=== PATIENT | female | born 1960 | race Hispanic/Latino ===

== ENCOUNTER 2020-04-19 07:34 | Outpatient (CLI) | payer BC ==
--- NOTE | 2020-04-19 08:41 | MRI ---
MRI LEFT KNEE WITHOUT CONTRAST: Date: 04/19/2020 HISTORY: Pain. History of old meniscus tear. COMPARISON: None. FINDINGS: Medial Meniscus: High grade radial tear posterior horn medial meniscus involving the free edge, intermediate, and port ions of the red zone, 6 mm from the footprint. There is also an undersurface flap tear of the medial meniscal body. 3 mm medial gutter extrusion with some loss of hoop stress. Lateral Meniscus: Free edge fraying and minimal undersurface lateral meniscal body. ACL and PCL are intact, as well as the MCL and LCL. Extensor Mechanism: Quadriceps tendon, patella, and patella tendon are all intact. Cartilage: Patellofemoral compartment: Full thickness chondral fissure to the lateral trochlea with subcortical reactive marrow change. Medial compartment: Few full thickness chondral fissures of the anterior weightbearing surface media l tibial plateau with a few subcortical reaction marrow change cysts. Lateral compartment: Low grade chondral fraying. Muscles: Muscle signal and bulk is normal. IMPRESSION: 1. High grade radial tear posterior horn medial meniscus 6 mm from the footprint near the root invol ving the free edge, intermediate, and portions of red zone. 2. Undersurface flap tear medial meniscal body with gutter extrusion and some loss of hoop stress. 3. A few foci of full thickness chondral fissures of the lateral trochlea, as well as of the anterio r weightbearing surface medial tibial plateau. POS: [facility]
== END 2020-04-19 07:35 | disposition home or self-care (01) ==
LOC: TBSIIMAG 07:34
PROVIDERS: ATTEND Orthopaedic Surgery
DX: S83.242A Other tear of medial meniscus, current injury, left knee, initial encounter (principal)

== ENCOUNTER 2020-05-23 06:55 | Outpatient (CLI) | payer BC ==
[2020-05-24 03:02] LABS: SARS-CoV-2 MS2 Positive; SARS-CoV-2 N Gene Negative; SARS-CoV-2 S Gene Negative; SARS-CoV-2 by NAA Not Detected (NotDetected); SARS-CoV-2 orf1ab Negative
--- NOTE | 2020-05-25 07:03 | EKG ---
Test Reason : Blood Pressure : / mmHG Vent. Rate : 059 BPM Atrial Rate : 059 BPM P-R Int : 152 ms QRS Dur : 090 ms QT Int : 418 ms P-R-T Axes : 041 066 051 degrees QTc Int : 413 ms Sinus bradycardia Otherwise normal ECG No previous ECGs available Confirmed by DR. Fede DUKES ([id number]) on 05/25/2020 7:02:43 AM Referred By: Laurita LAFLEUR Confirmed By:DR. Fede DUKES
== END 2020-05-23 06:56 | disposition home or self-care (01) ==
LOC: LABBT 06:55
PROVIDERS: ATTEND Orthopaedic Surgery
DX: Z01.818 Encounter for other preprocedural examination (principal); Z01.812 Encounter for preprocedural laboratory examination; Z20.828 Contact with and (suspected) exposure to other viral communicable diseases; S83.242A Other tear of medial meniscus, current injury, left knee, initial encounter
CPT/HCPCS: 87635; 93005; 93010; U0003

== ENCOUNTER 2020-05-26 06:00 | Day surgery (SDC) | payer BC ==
[2020-05-24 12:16] VITALS: BMI 41.0
[2020-05-26] MEDS ORDERED: PROPOFOL 0 ML ONE (06:20)
[2020-05-26] MEDS ORDERED: Fentanyl 100 MCG/2 ML VIAL ONE ×2 (06:23→06:39)
[2020-05-26] MEDS ORDERED: Midazolam HCl 2 mg/2 ml Vial ONE (06:39)
[2020-05-26 07:29] LABS: Anion Gap 14 mmol/L (10-20); BUN (Urea Nitrogen) 12 mg/dL (9.8-20.1); Calc. Creatinine Clearance 141 mL/min (70-130); Calcium 8.5 mg/dL (7.8-10.44); Carbon Dioxide 25 mmol/L (22-29); Chloride 105 mmol/L (98-107); Glucose 105 mg/dL (70-105); Potassium 3.6 mmol/L (3.5-5.1); Sodium 140 mmol/L (136-145)
--- NOTE | 2020-05-26 08:56 | OP ---
DATE OF PROCEDURE: 05/26/2020 PROCEDURE PERFORMED: Left knee arthroscopic partial medial and lateral meniscectomy. PREOPERATIVE DIAGNOSIS: Medial meniscus tear with some degenerative changes of medial compartment. POSTOPERATIVE DIAGNOSIS: Medial meniscus tear with some degenerative changes of medial compartment with small lateral meniscus tear. ANESTHESIA: General. ESTIMATED BLOOD LOSS: Minimal. SPECIMEN: None. DRAINS: None. COMPLICATION: None. 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 Intact ACL. Lateral compartment with a central edge lateral meniscus tear. Scope was placed in the lateral portal. Probe was placed in the medial portal. I debrided the medial meniscus with basket forceps and then shaved this with a full-radius resector, removing loose bodies and smoothing the meniscus. I did this repeatedly alternating until had a stable medial meniscus. The lateral meniscus had a tear, which was fairly small, was able to be removed with a shaver. I swept the gutters for loose bodies, there were none. I swept the superior aspect of the pouch to make sure there were no loose bodies in this area, irrigated the knee and drained and sterile dressings applied. Job ID: [id number]
[2020-05-26] MEDS ORDERED: Ondansetron PF 4 MG/2 ML Vial ONE (10:08)
[2020-05-26] MEDS ORDERED: PROPOFOL 200 MG/20 ML VIAL ONE (10:08)
[2020-05-26] MEDS ORDERED: Dexamethasone 20 MG/5 ML VIAL ONE (10:08)
[2020-05-26] MEDS ORDERED: Ketorolac Tromethamine 30 MG/ML VIAL ONE (10:08)
[2020-05-26] MEDS ORDERED: Lidocaine 2% w/Epinephrine 1:200K 20 ML VIAL ONE (10:08)
[2020-05-26] MEDS ORDERED: Bupivacaine PF 0.5% 30 ML VIAL ONE (10:08)
== END 2020-05-26 10:35 | disposition home or self-care (01) ==
LOC: SDC 06:00
PROVIDERS: ATTEND Orthopaedic Surgery
PROC: 0SBD4ZZ Excision of Left Knee Joint, Percutaneous Endoscopic Approach (ICD-10-PCS; principal; 2020-05-26)
DX: M23.222 Derangement of posterior horn of medial meniscus due to old tear or injury, left knee (principal); M23.201 Derangement of unspecified lateral meniscus due to old tear or injury, left knee; M94.262 Chondromalacia, left knee; I10 Essential (primary) hypertension; D64.9 Anemia, unspecified; E07.9 Disorder of thyroid, unspecified; M17.12 Unilateral primary osteoarthritis, left knee; Z79.82 Long term (current) use of aspirin; Z79.899 Other long term (current) drug therapy; Z88.2 Allergy status to sulfonamides
CPT/HCPCS: 80048; J0690; J1100; J1885; J2250; J2405; J2704; J3010; S0020

== ENCOUNTER 2022-03-27 13:11 | Outpatient (CLI) | payer BC | END 2022-03-27 13:12 | disposition home or self-care (01) | LOC: DTY/OP 13:11 | PROVIDERS: ATTEND Surgery | DX: E66.01 Morbid (severe) obesity due to excess calories (principal); Z68.41 Body mass index [BMI] 40.0-44.9, adult | CPT/HCPCS: 97802 ==

== ENCOUNTER 2022-05-06 08:20 | Outpatient (CLI) | payer BC ==
[2022-05-06 09:43] LABS: #Basophils 0.1 10x3/uL (0.0-0.2); #Eosinphils 0.2 10x3/uL (0.0-0.5); #Monocytes 0.4 10x3/uL (0.0-1.1); #Neutrophils 3.2 10x3/uL (1.5-8.4); %Basophils 0.9 % (0.0-2.0); %Eosinophils 3.1 % (0.0-6.0); %Lymphocytes 31.2 % (18.0-47.0); %Neutrophils 57.4 % (40.0-75.0); Hemoglobin 13.2 g/dL (12.0-15.5); Mean Corpuscular Hemoglobin 30.8 pg (27.0-33.0); Mean Corpuscular Volume 90.4 fl (81.6-98.3); Mean Platelet Volume 10.9 fl (7.4-10.4); Platelet Count 229 10x3/uL (150-450); RBC Distribution Width 12.5 % (11.5-14.5); Red Blood Cell (RBC) Count 4.29 10x6/uL (3.90-5.03); White Blood Cell (WBC) Count 5.6 10x3/uL (3.5-10.5)
[2022-05-06 09:53] LABS: ALT (SGPT) 16 U/L (8-55); AST (SGOT) 20 U/L (5-34); Alkaline Phosphatase 85 U/L (40-110); Anion Gap 12 mmol/L (10-20); BUN (Urea Nitrogen) 11 mg/dL (9.8-20.1); Bilirubin, Total 0.5 mg/dL (0.2-1.2); Calc. Creatinine Clearance 0 mL/min (70-130); Calcium 9.1 mg/dL (7.8-10.44); Carbon Dioxide 26 mmol/L (22-29); Chloride 107 mmol/L (98-107); Estimated GFR 90; Glucose 97 mg/dL (70-105); Potassium 4.3 mmol/L (3.5-5.1); Sodium 141 mmol/L (136-145)
[2022-05-06 13:21] LABS: Hemoglobin A1c 5.3 % (4.0-6.0)
== END 2022-05-06 08:21 | disposition home or self-care (01) ==
LOC: LABBT 08:20
PROVIDERS: ATTEND Surgery
DX: Z01.818 Encounter for other preprocedural examination (principal)
CPT/HCPCS: 71046; 80053; 83036; 85025

== ENCOUNTER 2022-05-06 08:45 | Inpatient (IN) | payer BC ==
[2022-05-21 12:05] VITALS: BMI 40.8
[2022-05-22 08:02] LABS: SARS-CoV-2 NAA Rapid Test Not Detected (NotDetected)
[2022-05-22] MEDS ORDERED: Heparin 5,000 UNITS/ML VIAL ONE ×2 (08:08→08:10)
[2022-05-22] MEDS ORDERED: Bupivacaine/Epinephrine 0.25% 30 ML VIAL ONE (08:48)
[2022-05-22] MEDS ORDERED: SUGAMMADEX SODIUM 200 MG/2 ML VIAL ONE (09:16)
[2022-05-22] MEDS ORDERED: fentaNYL PF 100 MCG/2 ML SYRINGE ONE (09:16)
[2022-05-22] MEDS ORDERED: CEFAZOLIN 2 GM VIAL ONE (09:25)
[2022-05-22] MEDS ORDERED: Sodium Chloride 0.9% 100 ML ONE (09:25)
[2022-05-22] MEDS ORDERED: Rocuronium Bromide 10 MG/ML (10ML VIAL) ONE (09:34)
[2022-05-22] MEDS ORDERED: PROPOFOL 200 MG/20 ML VIAL ONE (09:34)
[2022-05-22] MEDS ORDERED: Ondansetron PF 4 MG/2 ML Vial ONE ×2 (09:34→11:09)
[2022-05-22] MEDS ORDERED: Metoclopramide HCl 10 MG/2 ML VIAL ONE (09:34)
[2022-05-22] MEDS ORDERED: Ondansetron PF 4 MG/2 ML Vial IVP PRN (10:45)
[2022-05-22] MEDS ORDERED: Dextrose 50% Abboject 50 ML SYRINGE SLOW IVP PRN (10:45)
[2022-05-22] MEDS ORDERED: diphenhydrAMINE 50 MG/ML VIAL IVP PRN (10:45)
[2022-05-22] MEDS ORDERED: Morphine 4 MG/ML VIAL SLOW IVP PRN ×2 (10:45→11:01)
[2022-05-22] MEDS ORDERED: Promethazine HCl 25 MG/ML VIAL IM PRN ×2 (10:45→10:52)
[2022-05-22] MEDS: D5 1/2 NS w/20 mEq KCL 1,000 ML IV SCH ×3 (10:45→21:08)
[2022-05-22] MEDS ORDERED: Hydrocodone-Acetamin 15 ML UDCUP PO PRN (10:45)
[2022-05-22] MEDS ORDERED: hydrALAZINE 20 MG/ML VIAL SLOW IVP PRN (10:45)
[2022-05-22] MEDS ORDERED: Dextrose 5% in Water 1,000 ML IV PRN (10:45)
[2022-05-22] MEDS ORDERED: Promethazine HCl 25 MG/ML VIAL IVPB PRN (10:52)
[2022-05-22] MEDS ORDERED: Ondansetron HCl/PF 4 MG/2 ML Vial IVP PRN (10:52)
[2022-05-22] MEDS ORDERED: FENTANYL 50 MCG/ML 1 ML VIAL ONE ×5 (10:58→16:32)
[2022-05-22] MEDS: Ketorolac Tromethamine 30 MG/ML VIAL IVP SCH ×2 (12:00→18:31)
[2022-05-22] MEDS: CEFAZOLIN 2 GM in Sodium Chloride 0.9% 100 ML IVPB SCH (18:31)
[2022-05-23] MEDS: Ketorolac Tromethamine 30 MG/ML VIAL IVP SCH ×2 (00:58→05:58)
[2022-05-23] MEDS: CEFAZOLIN 2 GM in Sodium Chloride 0.9% 100 ML IVPB SCH (00:58)
[2022-05-23 06:46] LABS: #Lymphocytes 1.1 thou/uL (1.20-3.40); #Monocytes 0.5 thou/uL (0.11-0.59); #Neutrophils 6.9 thou/uL (1.40-6.50); %Basophils 0.1 % (0.0-1.0); %Eosinophils 0.1 % (0.0-10.0); %Monocytes 5.8 % (0.0-10.0); Hemoglobin 13.3 g/dL (12.0-16.0); Mean Corpuscular HGB CONC 33.4 g/dL (32.0-36.0); Mean Corpuscular Hemoglobin 31.8 pg (27.0-31.0); Mean Corpuscular Volume 95.3 fl (78.0-98.0); Mean Platelet Volume 9.7 fL (7.4-10.4); Platelet Count 198 10x3/uL (130-400); RBC Distribution Width 11.8 % (11.5-14.5); Red Blood Cell (RBC) Count 4.17 mill/uL (4.20-5.40); White Blood Cell (WBC) Count 8.5 10x3/uL (4.8-10.8)
[2022-05-23 07:04] LABS: Anion Gap 12 mmol/L (10-20); BUN (Urea Nitrogen) 10 mg/dL (9.8-20.1); Calc. Creatinine Clearance 132 mL/min (70-130); Calcium 9.2 mg/dL (7.8-10.44); Carbon Dioxide 24 mmol/L (22-29); Chloride 106 mmol/L (98-107); Estimated GFR 82; Glucose 132 mg/dL (70-105); Potassium 4.4 mmol/L (3.5-5.1); Sodium 138 mmol/L (136-145)
[2022-05-23] MEDS ORDERED: Metoprolol Tartrate 25 MG TAB PO SCH (09:00)
[2022-05-23] MEDS ORDERED: Enoxaparin Sodium 40 MG/0.4 ML SYRINGE SC SCH (09:00)
[2022-05-23] MEDS ORDERED: Pantoprazole 40 MG VIAL IVP SCH (09:00)
[2022-05-23 11:26] VITALS: BP 130/69; TEMP 97.7
== END 2022-05-23 13:20 | disposition home or self-care (01) | DRG 621 ==
LOC: SURG A 05-22 06:47
PROVIDERS: ADMIT Surgery; ATTEND Surgery
PROC: 0DB64Z3 Excision of Stomach, Percutaneous Endoscopic Approach, Vertical (ICD-10-PCS; principal; 2022-05-22)
PROC: 8E0W4CZ Robotic Assisted Procedure of Trunk Region, Percutaneous Endoscopic Approach (ICD-10-PCS; 2022-05-22)
DX: E66.01 Morbid (severe) obesity due to excess calories (principal); Z20.822 Contact with and (suspected) exposure to COVID-19; H40.9 Unspecified glaucoma; E03.9 Hypothyroidism, unspecified; D64.9 Anemia, unspecified; Z68.41 Body mass index [BMI] 40.0-44.9, adult; Z88.2 Allergy status to sulfonamides; Z90.49 Acquired absence of other specified parts of digestive tract; Z79.890 Hormone replacement therapy; Z79.899 Other long term (current) drug therapy; Z79.82 Long term (current) use of aspirin
CPT/HCPCS: 36415; 80048; 85025; 88307; 88342; C9113; J1644; J1650; J1885; J2405; J2704; J2765; J3010; J3480; J3490; U0002